=== PATIENT | female | born 1990 ===

== ENCOUNTER 2017-10-10 10:15 | Inpatient (IN) | payer OTHER ==
[2017-10-10 23:11] VITALS: BMI 25.5
--- NOTE | 2017-10-10 23:41 | OBHP ---
Datetime: 10/10/2017 23:40 IP Adm Impression: Term, intrauterine IP Admit Plan: Initiate labor augmentation protocol Pelvic Type - PN: Adequate Extremities - PN: Normal Abdomen - PN: Normal Back - PN: Normal Breast - PN: Normal Lungs - PN: Normal Heart - PN: Normal Thyroid - PN: Normal Neurologic - PN: Normal HEENT - PN: Normal General - PN: Normal FHR - Baseline A Provider: 130 Membranes, Provider: Intact Contraction Comments Provider: 2-3 ctx EGA AdmitDate IP: 38.4 Vital Signs Provider: Reviewed; Within Normal Limits IP Chief Complaint: Uterine contractions NICHD Accel Fetus A IP Provider: [id number] NICHD Decel Fetus A IP Provider: None Dilatation, Provider: 2-3 Effacement, Provider: 90 Station, Provider: -2 Genitourinary Exam: Normal DTRs - PN: Normal Datetime: 10/10/2017 23:31 Admit Comment, IP Provider: 27 y/o at 38.5 wks presents with c/o ctx since this morning. No c/o CTX, VB or LOF. + FM PMH: Carlos PSH: Denies POBH: Primigravid Labs:Hep B- Neg RPR: NR HIV: NR VE: 2/-2 TOCO: Ctx q 2-3 min EFM: 130 CAT 1 A/P: 27 y/o at 38.5 wks in labor Admit to L_D to service for possible augmentation of labor IVF Blood work epidural for Anaesthesia Presentation-Admit: Vertex Gestation - Est Wks by US: 38.5 NICHD Variability Prov Fetus A: Moderate 6-25bpm
--- NOTE | 2017-10-10 23:43 | OBADHP ---
Datetime: 10/10/2017 23:40 Admit Comment, IP Provider: 27 y/o at 38.5 wks presents with c/o ctx since this morning. No c/o CTX, VB or LOF. + FM PMH: Deneis PSH: Denies POBH: Primigravid Labs:Hep B- Neg RPR: NR HIV: NR VE: 2-3//-2 TOCO: Ctx q 2-3 min EFM: 130 CAT 1 A/P: 27 y/o at 38.5 wks in labor Admit to L_D to service for possible augmentation of labor IVF Blood work epidural for Anaesthesia Pelvic Type - PN: Adequate Extremities - PN: Normal Abdomen - PN: Normal Back - PN: Normal Breast - PN: Normal Lungs - PN: Normal Heart - PN: Normal Thyroid - PN: Normal Neurologic - PN: Normal HEENT - PN: Normal General - PN: Normal Presentation-Admit: Vertex FHR - Baseline A Provider: 130 Membranes, Provider: Intact Contraction Comments Provider: 2-3 ctx Gestation - Est Wks by US: 38.5 Vital Signs Provider: Reviewed; Within Normal Limits IP Chief Complaint: Uterine contractions NICHD Variability Prov Fetus A: Moderate 6-25bpm NICHD Accel Fetus A IP Provider: [id number] NICHD Decel Fetus A IP Provider: None Dilatation, Provider: 2-3 Effacement, Provider: 90 Station, Provider: -2 Genitourinary Exam: Normal DTRs - PN: Normal EGA AdmitDate IP: 38.4 IP Adm Impression: Term, intrauterine IP Admit Plan: Initiate labor augmentation protocol
[2017-10-10] MEDS ORDERED: Oxytocin 30 UNIT 30 UNITS/500 ML BAG IV SCH (23:45)
[2017-10-10] MEDS ORDERED: Lactated Ringer's 1,000 ML IV SCH (23:45)
[2017-10-11 00:30] LABS: BASO # 0.1 K/uL (0.0-0.2); BASO % 0.6 % (0.0-2.0); EOS % 0.1 % (0.0-4.0); HEMOGLOBIN 12.2 g/dL (11.0-16.0); LYMPH # 1.7 K/uL (1.0-4.3); LYMPH % 9.7 % (20.0-40.0); MEAN CELL VOLUME 81.7 fL (81.0-99.0); MEAN CORPUSCULAR HEMOGLOBIN 26.9 pg (27.0-31.0); MEAN CORPUSCULAR HGB CONC 32.9 g/dL (33.0-37.0); MEAN PLATELET VOLUME 8.5 fL (7.2-11.7); MONO % 5.8 % (0.0-10.0); NEUT # 14.9 K/uL (1.8-7.0); NEUT % 83.8 % (50.0-75.0); NRBC % 0.1 % (0.0-2.0); PLATELET COUNT 264 K/uL (130-400); RBC 4.54 Mil/uL (3.80-5.20); RED CELL DISTRIBUTION WIDTH 14.8 % (11.5-14.5); WHITE BLOOD COUNT 17.8 K/uL (4.8-10.8)
[2017-10-11 00:35] LABS: SQUAMOUS EPITHIAL 48 /hpf (0-5); URINE BACTERIA OCC (<OCC); URINE BILIRUBIN NEGATIVE (NEGATIVE); URINE BLOOD NEGATIVE (NEGATIVE); URINE CLARITY Hazy (Clear); URINE COLOR Yellow (YELLOW); URINE GLUCOSE (UA) NORMAL (Normal); URINE LEUKOCYTE ESTERASE 1+ Leu/uL (Negative); URINE PROTEIN NEGATIVE (NEGATIVE); URINE UROBILINOGEN NORMAL mg/dL (0.2-1.0)
[2017-10-11 00:37] LABS: BLOOD UREA NITROGEN 6 mg/dL (7-17); CALCIUM 9.5 mg/dl (8.6-10.4); GFR NON-AFRICAN AMERICAN > 60
[2017-10-11] MEDS ORDERED: Oxytocin 30 UNIT 30 UNITS/500 ML BAG IV ONE (01:04)
[2017-10-11 01:39] LABS: BANDS 1 % (0-2); LYMPHOCYTE 10 % (20-40); MONOCYTE 4 % (0-10); NEUTROPHIL 85 % (50-75); PLATELET ESTIMATE NORMAL (NORMAL); TOTAL CELLS COUNTED 100; TOXIC GRANULATION PRESENT
[2017-10-11] MEDS ORDERED: Bupivacaine HCl/FentaNYL Cit 100 ML EPI ONE (02:56)
[2017-10-11] MEDS ORDERED: Oxycodone/Acetaminophen 5/325 mg Tab PO PRN ×2 (07:16)
[2017-10-11] MEDS ORDERED: Benzocaine/Menthol 20%-0.5% Topical Spray (60 ml) TOP PRN (07:16)
--- NOTE | 2017-10-11 09:06 | OBDS ---
MATERNAL INFORMATION Provider Comments: prvate delivery baby deliveerd in junior. end clean no com LABOR SUMMARY EDC: 10/20/2017 00:00 LABOR INFORMATION Group B Beta Strep: Negative MEMBRANES Membranes Rupture Method: Spontaneous Rupture of Membranes: 10/11/2017 03:20 Amniotic Fluid Color: Clear Amniotic Fluid Amount: Moderate Amniotic Fluid Odor: Normal VAGINAL DELIVERY Laceration Extension: Second Degree Laceration Type: Perineal BABY A INFORMATION Vacuum Extraction: Successful ASSISTED DELIVERY BABY A Indication for Assisted Delivery: manual exertion/ctg 11 Vacuum Number of Pulls: 2 Vacuum Number of PopOffs: 1 IDENTIFICATION/MEDS BABY A ID Band Number: [id number] Sensor Number: [id number]
--- NOTE | 2017-10-11 09:06 | OBPN ---
Datetime: 10/11/2017 09:03 IP Progress Impression: Normal progression of labor IP Procedures: Sterile Vag Exam IP Progress Plan: Continue present management Contraction Comments Provider: q1-4 FHR - Baseline A Provider: 130 IP Progress Note Comment: pt was examined at bed side ve fd/100/0 anticipate NICHD Variability Prov Fetus A: Moderate 6-25bpm Dilatation, Provider: 10 Effacement, Provider: 100 Station, Provider: 0 NICHD Decel Fetus A IP Provider: Variable Datetime: 10/10/2017 23:40 Membranes, Provider: Intact Gestation - Est Wks by US: 38.5 Presentation-Admit: Vertex Vital Signs Provider: Reviewed; Within Normal Limits NICHD Accel Fetus A IP Provider: [id number]
--- NOTE | 2017-10-11 09:06 | OBADHP ---
Datetime: 10/11/2017 09:03 FHR - Baseline A Provider: 130 Contraction Comments Provider: q1-4 NICHD Variability Prov Fetus A: Moderate 6-25bpm NICHD Decel Fetus A IP Provider: Variable Dilatation, Provider: 10 Effacement, Provider: 100 Station, Provider: 0 Datetime: 10/10/2017 23:40 EGA AdmitDate IP: 38.4
[2017-10-11 11:59] VITALS: O2SAT 98
[2017-10-12 07:13] LABS: BASO % 0.3 % (0.0-2.0); EOS # 0.1 K/uL (0.0-0.7); EOS % 0.7 % (0.0-4.0); HEMOGLOBIN 10.5 g/dL (11.0-16.0); LYMPH # 1.7 K/uL (1.0-4.3); LYMPH % 10.6 % (20.0-40.0); MEAN CELL VOLUME 81.9 fL (81.0-99.0); MEAN PLATELET VOLUME 8.1 fL (7.2-11.7); NEUT # 13.2 K/uL (1.8-7.0); NEUT % 82.4 % (50.0-75.0); RBC 3.89 Mil/uL (3.80-5.20); RED CELL DISTRIBUTION WIDTH 14.9 % (11.5-14.5)
[2017-10-12] MEDS: Oxycodone/Acetaminophen 5/325 mg Tab PO SCH ×2 (16:22→21:34)
--- NOTE | 2017-10-12 18:18 | OBPPN ---
Datetime: 10/12/2017 15:15 PP Pain Prov: Within normal limits PP Nausea Prov: Denies PP Breasts Prov: Not Done PP Heart Prov: Normal PP Lungs Prov: Normal PP Abdomen/Uterus Prov: Normal PP Lochia Prov: Normal PP Vulva/Perineum Prov: Normal PP CVA Tenderness Prov: Normal PP Extremities Prov: Normal PP Progress Prov: Normal PP Impression Prov: Normal progression PP Plan Prov: Continue present management PP Progress Note Prov: PPD 1 S/P without compllications PP H_H 10.5/31.8 and Asymptomatic Stable and Satisfactory condition and recovery Advance care Anticipate D/c home in Am Vital Signs Provider PP: Reviewed; Within Normal Limits Vital Signs Provider Details PP: Fundus firm and non-tender
[2017-10-13] MEDS: Oxycodone/Acetaminophen 5/325 mg Tab PO SCH (03:00)
--- NOTE | 2017-10-13 11:38 | OBPPN ---
Datetime: 10/13/2017 10:18 PP Pain Prov: Within normal limits PP Nausea Prov: Denies PP Flatus Prov: Yes PP BM Prov: No PP Breasts Prov: Not Done PP Heart Prov: Normal PP Lungs Prov: Normal PP Abdomen/Uterus Prov: Normal PP Lochia Prov: Normal PP Vulva/Perineum Prov: Normal PP CVA Tenderness Prov: Normal PP Extremities Prov: Normal PP C/S Incision Prov: Not Applicable PP Progress Prov: Normal PP Impression Prov: Normal progression PP Plan Prov: Discharge PP Progress Note Prov: PPD # 2 C/O of discomfort with perineal stitches and trying not to take pain medication Advised to start taking Motrin 600 mg po Q 6 hrs ATC and continue using Hydrocortisone cream, Tuck s, Dermoplast Continue Sitz baths at home prn Probable UTI and was started on Keflex by Dr. Rosenberg Will D/C home with instructions and Rx's for Motrin and Keflex Fundus firm and NT and below umbilicus Stable and Satisfactory condition and recovery D/C home with instructions and Rx's IP PP Procedures: None
[2017-10-13 18:29] VITALS: BP 119/70; PULSE 100; RESP 18; TEMP 97.5
== END 2017-10-13 14:27 | disposition home or self-care (01) | DRG 775 ==
LOC: C.EROB 10:15 → C.4D 23:32 → C.4M 10-11 11:30
PROVIDERS: ADMIT Obstetrics & Gynecology; ATTEND Obstetrics & Gynecology
PROC: 10D07Z6 Extraction of Products of Conception, Vacuum, Via Natural or Artificial Opening (ICD-10-PCS; principal; 2017-10-11)
PROC: 0KQM0ZZ Repair Perineum Muscle, Open Approach (ICD-10-PCS; 2017-10-11)
DX: O86.20 Urinary tract infection following delivery, unspecified (principal); Z37.0 Single live birth; O70.1 Second degree perineal laceration during delivery; Z3A.38 38 weeks gestation of pregnancy